=== PATIENT | male | born 1980 | race Caucasian/White ===

== ENCOUNTER → 2022-12-24 | Outpatient (REF) | payer OTHER | LOC: M SFHCDERM 16:32 | PROVIDERS: ATTEND Nurse Practitioner Family | DX: D22.72 Melanocytic nevi of left lower limb, including hip (principal) ==

== ENCOUNTER → 2023-01-18 | Outpatient (REF) | payer OTHER | LOC: M SFHCDERM 17:04 | PROVIDERS: ATTEND Dermatology | DX: D48.9 Neoplasm of uncertain behavior, unspecified (principal) ==

== ENCOUNTER → 2023-02-02 | Outpatient (REF) | payer OTHER | LOC: M SFHCDERM 18:06 | PROVIDERS: ATTEND Dermatology | DX: D23.30 Other benign neoplasm of skin of unspecified part of face (principal); L57.8 Other skin changes due to chronic exposure to nonionizing radiation ==